=== PATIENT | male | born 1995 | race Caucasian/White ===

== ENCOUNTER 2024-10-29 06:30 | Emergency (ER) | payer OTHER ==
[2024-10-29 06:41] LABS: MEAN PLATELET VOLUME 8.5 fL (6.7-11.0); PLATELET COUNT,PLT 226 x10(3)uL (117-477); RED BLOOD CELL COUNT 5.76 x10(6)uL (3.90-5.90); RED CELL DISTRIBUTION WIDTH 13.0 % (12.4-15.0); WHITE BLOOD CELL COUNT,WBC 15.4 x10-3/uL (3.2-10.1)
[2024-10-29 06:48] LABS: BLOOD UREA NITROGEN,BUN 12 mg/dL (7-18); CARBON DIOXIDE,CO2 31 mmol/L (21-32); CHLORIDE,CL 106 mmol/L (100-110); CREATININE 1.1 mg/dL (0.70-1.30); ESTIMATED GFR 94 mL/min (>60); GLUCOSE RANDOM 113 mg/dL (80-116); POTASSIUM,K 3.4 mmol/L (3.5-5.3); SODIUM,NA 143 mmol/L (135-145)
[2024-10-29] MEDS: Sodium Chloride 0.9% 10 ML Syringe FLUSH PRN (06:50)
[2024-10-29 06:52] LABS: EOSINOPHILS PERCENT MAN 1 % (0-5); LYMPHOCYTES PERCENT MAN 14 % (13-37); MONOCYTES PERCENT MAN 5 % (4-12); SEG NEUTROPHILS PERCENT MAN 80 % (46-82)
[2024-10-29 06:54] LABS: A/G RATIO 0.9; ALANINE AMINOTRANSFERASE,ALT 33 U/L (12-36); ASPARTATE AMNIOTRANSFERASE,AST 51 IU/L (5-25); BILIRUBIN TOTAL 0.5 mg/dL (0.1-1.3); PROTEIN TOTAL,TP 6.6 g/dL (6.0-8.0)
[2024-10-29] MEDS: Ketorolac 30 MG/ML SDV IVPUSH ONE (08:01)
[2024-10-29 09:29] LABS: GLUCOSE,URINE NORMAL (NORMAL); OCCULT BLOOD,URINE LARGE (NEGATIVE)
[2024-10-29 09:30] LABS: APPEARANCE,URINE SLIGHTLY CLOUDY (CLEAR)
[2024-10-29 09:35] LABS: COARSE GRANULAR CASTS,URINE FEW (NS); EPITHELIAL CELLS,URINE FEW
[2024-10-29 09:44] LABS: AMPHETAMINES SCREEN, URINE NEGATIVE (NEGATIVE); METHADONE SCREEN, URINE NEGATIVE (NEGATIVE); METHAMPHETAMINE SCREEN, URINE NEGATIVE (NEGATIVE); OXYCODONE SCREEN,URINE NEGATIVE (NEGATIVE)
[2024-10-29 09:46] LABS: BUPRENORPHINE SCREEN,URINE NEGATIVE (NEGATIVE)
== END 2024-10-29 10:02 | disposition home or self-care (01) ==
LOC: FB.ED 06:30
DX: S30.0XXA Contusion of lower back and pelvis, initial encounter (principal); S00.83XA Contusion of other part of head, initial encounter; S70.12XA Contusion of left thigh, initial encounter; S00.412A Abrasion of left ear, initial encounter; S00.411A Abrasion of right ear, initial encounter; V58.5XXA Driver of pick-up truck or van injured in noncollision transport accident in traffic accident, initial encounter; Y93.89 Activity, other specified
CPT/HCPCS: 36415; 70450; 70486; 72131; 80053; 80307; 81001; 85025; 96361; 96374; 96375; 99284; 99284-25; J1885; J2270; J7030